=== PATIENT | female | born 2000 | race African-American/Black ===

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

== ENCOUNTER 2018-04-24 13:39 | Emergency (ER) | payer MEDICAID ==
[2018-04-24 15:46] LABS: ABSOLUTE EOSINOPHILS # (AUTO) 0.1 10^3/uL (0.0-0.6); ABSOLUTE LYMPHOCYTES (AUTO) 1.4 10^3/uL (0.5-4.7); ABSOLUTE MONOCYTES (AUTO) 0.5 10^3/uL (0.1-1.4); ABSOLUTE NEUT (AUTO) 5.4 10^3/uL (1.7-8.2); BASOPHILS % (AUTO) 0.3 % (0-2); EOSINOPHILS % (AUTO) 1.7 % (0-6); HEMATOCRIT 38.2 % (36.0-47.0); HEMOGLOBIN 12.8 g/dL (12.0-15.5); LYMPHOCYTES % (AUTO) 18.4 % (13-45); MEAN CORPUSCULAR HEMOGLOBIN 28.3 pg (27.0-33.4); MEAN CORPUSCULAR HGB CONC 33.4 g/dL (32.0-36.0); MEAN CORPUSCULAR VOLUME 85 fl (80-97); PLATELET COUNT 176 10^3/uL (150-450); RED CELL DISTRIBUTION WIDTH 13.3 % (11.5-14.0); SEGMENTED NEUTROPHILS % (AUTO) 72.6 % (42-78); TOTAL CELLS COUNTED % (AUTO) 100 %; WHITE BLOOD COUNT 7.5 10^3/uL (4.0-10.5)
[2018-04-24 16:02] LABS: APPEARANCE,URINE CLOUDY; BILIRUBIN,URINE NEGATIVE (NEGATIVE); COLOR,URINE YELLOW; GLUCOSE, URINE NEGATIVE (NEGATIVE); KETONES,URINE TRACE mg/dL (NEGATIVE); LEUKOCYTE ESTERASE,URINE TRACE (NEGATIVE); NITRITE,URINE NEGATIVE (NEGATIVE); PROTEIN,URINE 100 mg/dL (NEGATIVE); URINE SPECIFIC GRAVITY 1.018; UROBILINOGEN,URINE NEGATIVE mg/dL (<2.0)
[2018-04-24 16:07] LABS: ANION GAP 12 (5-19); BLOOD UREA NITROGEN 7 mg/dL (7-20); CARBON DIOXIDE 25 mmol/L (22-30); CHLORIDE 102 mmol/L (98-107); GLUCOSE 69 mg/dL (75-110); POTASSIUM 4.3 mmol/L (3.6-5.0); SODIUM 138.8 mmol/L (137-145)
[2018-04-24] MEDS ORDERED: NITROFURANTOIN MONOHYD/M-CRYST 100 MG CAPSULE PO ONE (18:46)
--- NOTE | 2018-04-24 18:48 | RADIOLOGY REPORT (SQ) ---
EXAM DESCRIPTION: U/S OB 14+ TRNABD 1GES W/O DOP COMPLETED DATE/TIME: 04/24/2018 6:28 pm REASON FOR STUDY: 16weeks vag bleeding COMPARISON: None. TECHNIQUE: Static and Dynamic grayscale imaging performed of gravid uterus using transabdominal appr oach. Additional selected color Doppler and spectral images recorded. All stored on PACS. LIMITATIONS: None. FINDINGS: EGA: 15 weeks 6 days gestation by ultrasound DONIS: 10/10/2018 by ultrasound EFW: 135 g grams PERCENTILE: Not available BRENT: Adequate PLACENTA: Placenta is posterior PRESENTATION: Vertex ANATOMY: HEART RATE: 137 beats per minute. FOUR CHAMBER HEART: Visualized. THREE VESSEL CORD: Yes. CORD INSERTION: Visualized. KIDNEYS AND BLADDER: Kidneys not visualized. Bladder unremarkable. STOMACH: Visualized. Appears normal. SPINE: Not visualized on limited study. BRAIN AND LATERAL VENTRICLES: Not visualized on limited study OTHER: No other significant finding. MATERNAL ADNEXA: Maternal ovaries not visualized. CERVICAL LENGTH: 3.7 cm OTHER: No other significant finding. IMPRESSION: LIVING INTRAUTERINE . ESTIMATED GESTATIONAL AGE 15 weeks 6 days gestation NO VISUALIZED ANOMALIES. Trimester of : 2nd trimester TECHNICAL DOCUMENTATION: JOB ID: [id number] [employer]- All Rights Reserved Reading location - IP/workstation name: [email or web address]
[2018-04-24] MEDS ORDERED: CEPHALEXIN 500 MG CAPSULE PO ONE (18:53)
--- NOTE | 2018-04-24 18:57 | ER Document Report ---
ED General - General Chief Complaint: Vaginal Bleeding Stated Complaint: VAGINAL BLEEDING Time Seen by Provider: 04/24/18 15:08 TRAVEL OUTSIDE OF THE [place] IN LAST 30 DAYS: No - HPI Patient complains to provider of: Vaginal bleeding/hematuria Notes: Patient coming in for possible vaginal bleeding or hematuria. Patient states unseen blood when she urinates. Patient otherwise not wearing pads or tampons. Patient is an NG to P0 determine portion of the first currently approximately 16 weeks along. Patient denies abdominal pain patient denies fever chills nausea vomiting diarrhea denies any dysuria. Patient resting company upon my evaluation - Related Data Allergies/Adverse Reactions: No Known Allergies Allergy (Verified 04/24/18 13:41) Past Medical History - Social History Smoking Status: Never Smoker Chew tobacco use (# tins/day): No Frequency of alcohol use: None Drug Abuse: None Family History: Reviewed & Not Pertinent Patient has suicidal ideation: No Patient has homicidal ideation: No Pulmonary Medical History: Reports: Hx Asthma Renal/ Medical History: Denies: Hx Peritoneal Dialysis - Immunizations Hx Diphtheria, Pertussis, Tetanus Vaccination: Yes Review of Systems - Review of Systems Constitutional: No symptoms reported EENT: No symptoms reported Cardiovascular: No symptoms reported Respiratory: No symptoms reported Gastrointestinal: No symptoms reported Genitourinary: Hematuria - Versus vaginal bleeding Female Genitourinary: No symptoms reported Musculoskeletal: No symptoms reported Skin: No symptoms reported Hematologic/Lymphatic: No symptoms reported Neurological/Psychological: No symptoms reported -: Yes All other systems reviewed and negative Physical Exam - Vital signs Vitals: Temp Pulse Resp BP Pulse Ox 99.1 F 102 H 20 119/64 94 04/24/18 13:46 04/24/18 13:46 04/24/18 13:46 04/24/18 13:46 04/24/18 13:46 Interpretation: Normal - General General appearance: Appears well, Alert - HEENT Head: Normocephalic, Atraumatic Eyes: Normal Pupils: PERRL - Respiratory Respiratory status: No respiratory distress Chest status: Nontender Breath sounds: Normal Chest palpation: Normal - Cardiovascular Rhythm: Regular Heart sounds: Normal auscultation Murmur: No - Abdominal Inspection: Normal Distension: No distension Bowel sounds: Normal Tenderness: Nontender Organomegaly: No organomegaly - Back Back: Normal, Nontender - Extremities General upper extremity: Normal inspection, Nontender, Normal color, Normal ROM , Normal temperature General lower extremity: Normal inspection, Nontender, Normal color, Normal ROM , Normal temperature, Normal weight bearing. No: Tameka's sign - Neurological Neuro grossly intact: Yes Cognition: Normal Orientation: AAOx4 [place] Coma Scale Eye Opening: Spontaneous [place] Coma Scale Verbal: Oriented [place] Coma Scale Motor: Obeys Commands Estuardo Coma Scale Total: 15 Speech: Normal Motor strength normal: LUE, RUE, LLE, RLE Sensory: Normal - Psychological Associated symptoms: Normal affect, Normal mood - Skin Skin Temperature: Warm Skin Moisture: Dry Skin Color: Normal Course - Re-evaluation Re-evalutation: 04/24/18 20:59 Ultrasound was performed showing no signs of distress. Normal heart tones normal ultrasound. Urinalysis does show hematuria with white blood cells and bacteria more likely hemorrhagic cystitis or urinary tract infection. Patient will be started on antibiotics. Patient was encouraged follow-up with her PRINCIPAL CLERK urine culture was sent as well - Vital Signs Vital signs: Temp Pulse Resp BP Pulse Ox 98.3 F 99 H 20 107/65 100 04/24/18 19:04 04/24/18 19:04 04/24/18 13:46 04/24/18 19:04 04/24/18 19:04 - Laboratory Result Diagrams: 04/24/18 15:22 04/24/18 15:22 Laboratory results interpreted by me: 04/24/18 04/24/18 15:22 15:22 Glucose 69 L Beta HCG, Quant 78001.00 H Urine Protein 100 H Urine Ketones TRACE H Urine Blood LARGE H Ur Leukocyte Esterase TRACE H Urine Ascorbic Acid 40 H Discharge - Discharge Clinical Impression: Vaginal bleeding during Urinary tract infection Qualifiers: Urinary tract infection type: site unspecified Hematuria presence: with hematuria Qualified Code(s): N39.0 - Urinary tract infection, site not specified Condition: Good Disposition: HOME, SELF-CARE Instructions: Cephalexin ([facility]), Urinary Tract Infection, Child ([facility]) Additional Instructions: Ultrasound does not show any abnormalities of your . You are O+ blood type. Laboratory studies not show any other concerns except for signs of urinary tract infection. Please take antibiotics as prescribed. Follow-up with PRINCIPAL CLERK return to the ER for any other concerning issues. Prescriptions: Cephalexin Monohydrate [Keflex 500 mg Capsule] 500 mg PO Q6H 10 Days capsule Referrals: MELODY CLAY MD [Primary Care Provider] - Follow up in 1 week
[2018-04-24 19:07] VITALS: BP 107/65
== END 2018-04-24 19:06 | disposition home or self-care (01) ==
LOC: ER 13:39
DX: O46.90 Antepartum hemorrhage, unspecified, unspecified trimester (principal); O23.40 Unspecified infection of urinary tract in pregnancy, unspecified trimester; R31.9 Hematuria, unspecified; O99.519 Diseases of the respiratory system complicating pregnancy, unspecified trimester; J45.909 Unspecified asthma, uncomplicated; O26.899 Other specified pregnancy related conditions, unspecified trimester; Z3A.00 Weeks of gestation of pregnancy not specified
CPT/HCPCS: 36415; 76805; 80048; 81001; 84702; 85025; 86900; 86901; 87086; 87088; 87186; 99284

== ENCOUNTER 2018-06-10 09:28 | Outpatient (CLI) | payer MEDICAID ==
[2018-06-10 10:09] LABS: ABSOLUTE LYMPHOCYTES (AUTO) 0.6 10^3/uL (0.5-4.7); ABSOLUTE MONOCYTES (AUTO) 1.1 10^3/uL (0.1-1.4); HEMOGLOBIN 9.2 g/dL (12.0-15.5); TOTAL CELLS COUNTED % (AUTO) 100 %
[2018-06-10 10:13] LABS: ABSOLUTE NEUT (AUTO) 8.9 10^3/uL (1.7-8.2); BASOPHILS % (AUTO) 0.2 % (0-2); EOSINOPHILS % (AUTO) 0.2 % (0-6); HEMATOCRIT 26.9 % (36.0-47.0); LYMPHOCYTES % (AUTO) 5.5 % (13-45); MEAN CORPUSCULAR HEMOGLOBIN 28.9 pg (27.0-33.4); MEAN CORPUSCULAR HGB CONC 34.1 g/dL (32.0-36.0); MEAN CORPUSCULAR VOLUME 85 fl (80-97); MONOCYTES % (AUTO) 10.4 % (3-13); PLATELET COUNT 130 10^3/uL (150-450); RED BLOOD COUNT 3.18 10^6/uL (3.72-5.28); RED CELL DISTRIBUTION WIDTH 13.3 % (11.5-14.0); SEGMENTED NEUTROPHILS % (AUTO) 83.7 % (42-78); WHITE BLOOD COUNT 10.6 10^3/uL (4.0-10.5)
[2018-06-10 10:28] LABS: ALANINE AMINOTRANSFERASE 28 U/L (9-52); ALBUMIN 3.2 g/dL (3.5-5.0); ALKALINE PHOSPHATASE 76 U/L (38-126); AMYLASE 39 U/L (30-110); ANION GAP 11 (5-19); ASPARTATE AMINO TRANSFERASE 17 U/L (14-36); BILIRUBIN,DIRECT 0.2 mg/dL (0.0-0.4); BILIRUBIN,TOTAL 0.3 mg/dL (0.2-1.3); BLOOD UREA NITROGEN 4 mg/dL (7-20); CALCIUM 8.3 mg/dL (8.4-10.2); CARBON DIOXIDE 20 mmol/L (22-30); CHLORIDE 104 mmol/L (98-107); GLUCOSE 113 mg/dL (75-110); LIPASE 20.5 U/L (23-300); POTASSIUM 3.1 mmol/L (3.6-5.0); SODIUM 135.4 mmol/L (137-145); TOTAL PROTEIN 6.1 g/dL (6.3-8.2)
[2018-06-10 11:02] LABS: APPEARANCE,URINE CLOUDY; BILIRUBIN,URINE NEGATIVE (NEGATIVE); COLOR,URINE YELLOW; GLUCOSE, URINE 50 mg/dL (NEGATIVE); KETONES,URINE NEGATIVE (NEGATIVE); LEUKOCYTE ESTERASE,URINE LARGE (NEGATIVE); NITRITE,URINE NEGATIVE (NEGATIVE); PROTEIN,URINE 30 mg/dL (NEGATIVE); URINE SPECIFIC GRAVITY 1.008; UROBILINOGEN,URINE NEGATIVE mg/dL (<2.0)
[2018-06-10 11:22] LABS: URINE AMPHETAMINES SCREEN NEGATIVE; URINE BARBITURATES SCREEN NEGATIVE; URINE BENZODIAZEPINES SCREEN NEGATIVE; URINE COCAINE SCREEN NEGATIVE; URINE MARIJUANA (THC) SCREEN NEGATIVE; URINE METHADONE SCREEN NEGATIVE; URINE PHENCYCLIDINE SCREEN NEGATIVE
--- NOTE | 2018-06-10 11:52 | RADIOLOGY REPORT (SQ) ---
EXAM DESCRIPTION: U/S OB LIMITED COMPLETED DATE/TIME: 06/10/2018 11:24 am REASON FOR STUDY: cervical length COMPARISON: None. TECHNIQUE: Limited transvaginal grayscale ultrasound for evaluation of specific requested obstetrica l parameters. LIMITATIONS: None. FINDINGS: CERVICAL LENGTH: 2.4 cm. Closed. BRENT: 5.5 cm. FHR: 150 beats per minute. PRESENTATION: Breech. OTHER: Posterior placenta. IMPRESSION: LIMITED OBSTETRICAL ULTRASOUND WITH MEASURED PARAMETERS DELINEATED ABOVE. Trimester of : Second trimester - 13 weeks 1 day to 27 weeks 6 days. TECHNICAL DOCUMENTATION: JOB ID: [id number] [employer]- All Rights Reserved Reading location - IP/workstation name: [email or web address]
[2018-06-10] MEDS ORDERED: CEFTRIAXONE INJ 1000 MG VIAL IM ONE (12:42)
[2018-06-10 13:06] LABS: RBCS (WET MOUNT) RARE RBCS SEEN; T.VAGINALIS (WET MOUNT) NO TRICHOMONAS SEEN; WBCS (WET MOUNT) 1+ WBCS SEEN; YEAST (WET MOUNT) NO YEAST SEEN
[2018-06-10] MEDS ORDERED: CEFTRIAXONE INJ 1000 MG VIAL ONE (13:08)
[2018-06-10] MEDS ORDERED: LIDOCAINE 1% INJ-PF (10 MG/ML) 30 ML SDV ONE (13:08)
[2018-06-10] MEDS ORDERED: ACETAMINOPHEN 325 MG TABLET ONE (13:53)
[2018-06-10 14:28] LABS: CHLAM PCR NOT DETECTED (NOT DETECT); GON PCR NOT DETECTED (NOT DETECT)
[2018-06-10] MEDS ORDERED: ACETAMINOPHEN 325 MG TABLET PO ONE (15:00)
== END 2018-06-10 14:20 | disposition home or self-care (01) ==
LOC: LC 09:28
PROVIDERS: ATTEND Student in an Organized Health Care Education/Training Program
PROC: 4A1HXCZ Monitoring of Products of Conception, Cardiac Rate, External Approach (ICD-10-PCS; principal; 2018-06-10)
DX: O23.42 Unspecified infection of urinary tract in pregnancy, second trimester (principal); Z3A.22 22 weeks gestation of pregnancy
CPT/HCPCS: 59899; 36415; 87086; 87210; 82150; 83690; 85025; 87088; 80053; 81001; 87186; 80307; 87491; 87591; 76815; J3490 ×2; J0696

== ENCOUNTER 2018-06-26 07:59 | Outpatient (CLI) | payer MEDICAID ==
[2018-06-26 10:15] LABS: APPEARANCE,URINE CLOUDY; BILIRUBIN,URINE NEGATIVE (NEGATIVE); COLOR,URINE YELLOW; GLUCOSE, URINE NEGATIVE (NEGATIVE); KETONES,URINE NEGATIVE (NEGATIVE); LEUKOCYTE ESTERASE,URINE SMALL (NEGATIVE); NITRITE,URINE NEGATIVE (NEGATIVE); PROTEIN,URINE >=500 mg/dL (NEGATIVE); URINE SPECIFIC GRAVITY 1.014; UROBILINOGEN,URINE NEGATIVE mg/dL (<2.0)
[2018-06-26 10:33] LABS: URINE AMPHETAMINES SCREEN NEGATIVE; URINE BARBITURATES SCREEN NEGATIVE; URINE BENZODIAZEPINES SCREEN NEGATIVE; URINE COCAINE SCREEN NEGATIVE; URINE MARIJUANA (THC) SCREEN NEGATIVE; URINE METHADONE SCREEN NEGATIVE; URINE PHENCYCLIDINE SCREEN NEGATIVE
--- NOTE | 2018-06-26 12:12 | RADIOLOGY REPORT (SQ) ---
EXAM DESCRIPTION: U/S OB LIMITED COMPLETED DATE/TIME: 06/26/2018 11:14 am REASON FOR STUDY: 27 WEEK IUP- ABD PAIN COMPARISON: 06/10/2018. TECHNIQUE: Limited transabdominal grayscale ultrasound for evaluation of specific requested obstetri danisha parameters. LIMITATIONS: None. FINDINGS: CERVICAL LENGTH: 3.0 cm. Closed. BRENT: Largest vertical pocket is 6.2 cm, clear fluid. FHR: 128 beats per minute. PRESENTATION: Cephalic. OTHER: Right ovary not seen. IMPRESSION: LIMITED OBSTETRICAL ULTRASOUND WITH MEASURED PARAMETERS DELINEATED ABOVE. Trimester of : Second trimester - 13 weeks 1 day to 27 weeks 6 days. TECHNICAL DOCUMENTATION: JOB ID: [id number] [employer] All Rights Reserved Reading location - IP/workstation name: [email or web address]
== END 2018-06-26 12:18 | disposition home or self-care (01) ==
LOC: LC 07:59
PROVIDERS: ATTEND Obstetrics & Gynecology
PROC: 4A1HXCZ Monitoring of Products of Conception, Cardiac Rate, External Approach (ICD-10-PCS; principal; 2018-06-26)
DX: O26.892 Other specified pregnancy related conditions, second trimester (principal); R10.2 Pelvic and perineal pain; Z3A.27 27 weeks gestation of pregnancy
CPT/HCPCS: 76815; 80307; 81001; 87086; 87088; 87186

== ENCOUNTER 2018-09-18 11:30 | Outpatient (CLI) | payer MEDICAID ==
--- NOTE | 2018-09-18 12:18 | Non Stress Test Report ---
Non Stress Test Datetime Report Generated by CPN: 09/18/2018 12:18 DEMOGRAPHIC EGA NST: 36.6 INDICATION Indication for Study: Diabetes Mellitus; Ordered by Provider Indication for Study (NST) Other: repeat from office VITAL SIGNS Temperature - NST: 98.3 Pulse - NST: 100 RESP - NST: 17 NBPSYS NST: 117 NBPDIA NST: 59 MONITORING Monitor Explained: Monitor Explained; Test Explained; Patient Verbalized Understanding Time on Monitor: 09/18/2018 11:37 Time off Monitor: 09/18/2018 12:02 NST Duration: 25 NST INTERVENTIONS NST Interventions: PO Hydration; Reposition Patient; Vibroacoustic Stim Physician Notified NST: Dr Kramer BABY A: [id number] BABY A Movement : Present Contraction Frequency : x1 Accelerations : 15X15 Decelerations : None Variability : Moderate 6-25bpm NST Review: Meets Criteria for Reactive NST NST Review and Verified By : SVance, RN NST Results: Reactive NST REPORT Report Trigger: Send Report
== END 2018-09-18 12:06 | disposition home or self-care (01) ==
LOC: LC 11:30
PROVIDERS: ATTEND Obstetrics & Gynecology
PROC: 4A1HXCZ Monitoring of Products of Conception, Cardiac Rate, External Approach (ICD-10-PCS; principal; 2018-09-18)
DX: O24.419 Gestational diabetes mellitus in pregnancy, unspecified control (principal); Z3A.36 36 weeks gestation of pregnancy
CPT/HCPCS: 59025

== ENCOUNTER 2018-09-27 17:30 | Outpatient (CLI) | payer MEDICAID ==
[2018-09-27 18:39] LABS: APPEARANCE,URINE SLIGHTLY-CLOUDY; BILIRUBIN,URINE NEGATIVE (NEGATIVE); COLOR,URINE YELLOW; GLUCOSE, URINE NEGATIVE (NEGATIVE); KETONES,URINE 20 mg/dL (NEGATIVE); LEUKOCYTE ESTERASE,URINE SMALL (NEGATIVE); NITRITE,URINE NEGATIVE (NEGATIVE); PROTEIN,URINE NEGATIVE (NEGATIVE); URINE SPECIFIC GRAVITY 1.011; UROBILINOGEN,URINE NEGATIVE mg/dL (<2.0)
[2018-09-27 19:00] LABS: URINE AMPHETAMINES SCREEN NEGATIVE; URINE BARBITURATES SCREEN NEGATIVE; URINE BENZODIAZEPINES SCREEN NEGATIVE; URINE COCAINE SCREEN NEGATIVE; URINE MARIJUANA (THC) SCREEN NEGATIVE; URINE METHADONE SCREEN NEGATIVE; URINE PHENCYCLIDINE SCREEN NEGATIVE
--- NOTE | 2018-09-27 19:02 | Non Stress Test Report ---
Non Stress Test Datetime Report Generated by CPN: 09/27/2018 19:02 DEMOGRAPHIC EGA NST: 38.1 INDICATION Indication for Study: Ordered by Provider VITAL SIGNS Temperature - NST: 98.3 Pulse - NST: 93 RESP - NST: 18 NBPSYS NST: 120 NBPDIA NST: 69 MONITORING Monitor Explained: Monitor Explained; Test Explained; Patient Verbalized Understanding Time on Monitor: 09/27/2018 17:57 Time off Monitor: 09/27/2018 18:43 NST Duration: 46 NST INTERVENTIONS NST Interventions: PO Hydration; Reposition Patient Physician Notified NST: C. Mejia CNM BABY A: [id number] BABY A Movement : Present Contraction Frequency : irritability FHR Baseline : 135 Accelerations : 15X15 Decelerations : None Variability : Moderate 6-25bpm NST Review: Meets Criteria for Reactive NST NST Review and Verified By : Yao Platt RN NST Results: Reactive NST REPORT Report Trigger: Send Report
== END 2018-09-27 18:48 | disposition home or self-care (01) ==
LOC: LC 17:30
PROVIDERS: ATTEND Obstetrics & Gynecology Gynecology
PROC: 4A1HXCZ Monitoring of Products of Conception, Cardiac Rate, External Approach (ICD-10-PCS; principal; 2018-09-27)
DX: Z34.93 Encounter for supervision of normal pregnancy, unspecified, third trimester (principal); Z3A.38 38 weeks gestation of pregnancy
CPT/HCPCS: 59025; 80307; 81005; 84112

== ENCOUNTER 2018-10-05 22:04 | Inpatient (IN) | payer MEDICAID ==
[2018-10-05 22:45] LABS: APPEARANCE,URINE CLEAR; BILIRUBIN,URINE NEGATIVE (NEGATIVE); COLOR,URINE STRAW; GLUCOSE, URINE NEGATIVE (NEGATIVE); KETONES,URINE NEGATIVE (NEGATIVE); LEUKOCYTE ESTERASE,URINE NEGATIVE (NEGATIVE); NITRITE,URINE NEGATIVE (NEGATIVE); PROTEIN,URINE NEGATIVE (NEGATIVE); URINE SPECIFIC GRAVITY 1.003; UROBILINOGEN,URINE NEGATIVE mg/dL (<2.0)
[2018-10-05 23:00] LABS: URINE AMPHETAMINES SCREEN NEGATIVE; URINE BARBITURATES SCREEN NEGATIVE; URINE BENZODIAZEPINES SCREEN NEGATIVE; URINE COCAINE SCREEN NEGATIVE; URINE MARIJUANA (THC) SCREEN NEGATIVE; URINE METHADONE SCREEN NEGATIVE; URINE PHENCYCLIDINE SCREEN NEGATIVE
--- NOTE | 2018-10-05 23:29 | Non Stress Test Report ---
Non Stress Test Datetime Report Generated by CPN: 10/05/2018 23:28 DEMOGRAPHIC Test Number: 1 EGA NST: 39.2 INDICATION Indication for Study: Ordered by Provider URINE RESULTS Urine Protein, NST: Negative Urine Ketones - NST: Negative Urine Glucose - NST: Negative Urine Blood - NST: Negative MONITORING Monitor Explained: Monitor Explained; Test Explained; Patient Verbalized Understanding Time on Monitor: 10/05/2018 22:22 Time off Monitor: 10/05/2018 22:55 NST Duration: 33 NST INTERVENTIONS NST Interventions: PO Hydration; Reposition Patient Physician Notified NST: Dr. Kramer BABY A: [id number] BABY A Movement : Present Contraction Frequency : 4-8 FHR Baseline : 125 Accelerations : 15X15 Decelerations : None Variability : Moderate 6-25bpm NST Review: Meets Criteria for Reactive NST NST Review and Verified By : Balbir Feliciano RN NST REPORT Report Trigger: Send Report
[2018-10-05 23:32] LABS: ABSOLUTE EOSINOPHILS # (AUTO) 0.1 10^3/uL (0.0-0.6); ABSOLUTE LYMPHOCYTES (AUTO) 1.5 10^3/uL (0.5-4.7); ABSOLUTE NEUT (AUTO) 5.6 10^3/uL (1.7-8.2); BASOPHILS % (AUTO) 0.4 % (0-2); EOSINOPHILS % (AUTO) 1.7 % (0-6); HEMATOCRIT 33.3 % (36.0-47.0); HEMOGLOBIN 11.3 g/dL (12.0-15.5); LYMPHOCYTES % (AUTO) 18.6 % (13-45); MEAN CORPUSCULAR HEMOGLOBIN 28.4 pg (27.0-33.4); MEAN CORPUSCULAR HGB CONC 34.1 g/dL (32.0-36.0); MEAN CORPUSCULAR VOLUME 83 fl (80-97); MONOCYTES % (AUTO) 11.7 % (3-13); PLATELET COUNT 128 10^3/uL (150-450); RED CELL DISTRIBUTION WIDTH 14.8 % (11.5-14.0); SEGMENTED NEUTROPHILS % (AUTO) 67.6 % (42-78); TOTAL CELLS COUNTED % (AUTO) 100 %; WHITE BLOOD COUNT 8.3 10^3/uL (4.0-10.5)
[2018-10-05 23:36] LABS: UR PRO/CREAT RATIO RESULT 0.8 mg/mg (0.0-0.2); URINE CREATININE 29.7 mg/dL (16-327); URINE PROTEIN 22.3 mg/dL (<12)
[2018-10-05 23:49] LABS: ALANINE AMINOTRANSFERASE 14 U/L (9-52); ALBUMIN 3.3 g/dL (3.5-5.0); ALKALINE PHOSPHATASE 248 U/L (38-126); ANION GAP 12 (5-19); ASPARTATE AMINO TRANSFERASE 19 U/L (14-36); BILIRUBIN,DIRECT 0.1 mg/dL (0.0-0.4); BILIRUBIN,TOTAL 0.2 mg/dL (0.2-1.3); BLOOD UREA NITROGEN 7 mg/dL (7-20); CALCIUM 8.8 mg/dL (8.4-10.2); CARBON DIOXIDE 20 mmol/L (22-30); CHLORIDE 105 mmol/L (98-107); GLUCOSE 81 mg/dL (75-110); POTASSIUM 3.9 mmol/L (3.6-5.0); TOTAL PROTEIN 5.8 g/dL (6.3-8.2); URIC ACID 4.8 mg/dL (2.5-6.2)
[2018-10-06] MEDS ORDERED: DINOPROSTONE 10 MG VAGINAL INSERT.SR PV PRN (00:28)
[2018-10-06] MEDS ORDERED: RINGERS SOLUTION,LACTATED 1,000 ML IV PRN (00:28)
[2018-10-06] MEDS ORDERED: RINGERS SOLUTION,LACTATED 300 ML IV ONE (00:28)
[2018-10-06] MEDS ORDERED: HYDRALAZINE HCL INJ/PF 20 MG/1 ML SDV IV PRN (00:30)
[2018-10-06] MEDS ORDERED: DINOPROSTONE 10 MG VAGINAL INSERT.SR ONE (01:33)
--- NOTE | 2018-10-06 06:44 | Admission Physical ---
Datetime Report Generated by CPN: 10/06/2018 06:43 CURRENT ADMISSION Chief Complaint: Maternal Discomfort; Other Indication for Induction: PreEclampsia Admit Impression : Term, Intrauterine ; Induction of Labor Admit Plan: Admit to Unit; Initiate Labor Induction Protocol ALLERGIES Medication Allergies: No Medication Allergies: No Known Allergies (10/05/2018) Latex: No Latex Allergies Food Allergies: NONE Environmental Allergies: NONE (Annotations: Data stored by CPN on behalf of user) OBSTETRICAL HISTORY EDC: 10/10/2018 00:00 : 2 Para: 0 Term: 0 : 0 SAB: 0 IAB: 1 Ectopic: 0 Livin Cesareans: 0 VBACs: 0 Multiple Births: 0 Gestational Diabetes: Yes Rh Sensitization: No Incompetent Cervix: No MARINO: No Infertility: No ART Treatment: No Uterine Anomaly: No IUGR: No Hx Previous C/S: No Macrosomia: No Hx Loss/Stillborn: No PIH: No Hx : No Placenta Previa/Abruption: No Depression/PP Depression: No PTL/PROM: No Post Hemorrhage: No Current Procedures: Ultrasound; NST Obstetrical History Comments: G1: 2016 16 week EAB G2: GDM, anemia, GBS positive SEE RECORDS Alcohol: No Marijuana : No Cocaine: No Other Illicit Drugs: No Cigarettes: Never Smoker. [id number] MEDICAL HISTORY Diabetes: Yes Diabetes Type: Gestational Diabetes Blood Transfusion: No Pulmonary Disease (Asthma, TB): Yes Breast Disease: No Hypertension: No Time Checker Surgery: No Heart Disease: No Hosp/Surgery: No Autoimmune Disorder: No Anesthetic Complications: No Kidney Disease: No Abnormal Pap Smear: No Neuro/Epilepsy: No Psychiatric Disorders: No Other Medical Diseases: No Hepatitis/Liver Disease: No Significant Family History: No Varicosities/Phlebitis: No Trauma/Violence : No Thyroid Dysfunction: No Medical History Comments: social issues, depression per chart FOB in longterm (they are together) per chart INFECTIOUS HISTORY Gonorrhea: No Genital Herpes: No Chlamydia: Yes Tuberculosis: No Syphilis: No Hepatitis: No HIV/AIDS Exposure: No Rash or Viral Illness: No HPV: No Infectious History Comments: positive chlam neg ANATOLY 06/10/18 PHYSICAL EXAM General: Normal HEENT: Normal Neurologic: Normal Thyroid: Normal Heart: Normal Lungs: Normal Breast: Deferred Back: Normal Abdomen: Normal Genitourinary Exam: Normal Extremities: Normal DTRs: Normal Pelvic Type: Adequate Vital Signs: Reviewed VAGINAL EXAM Dilatation: 0 Effacement: 0 Station: -3 MEMBRANES Pooling: Negative Membranes: Intact FETUS A EGA: 39.3 Monitoring: External US FHR- Baseline: 120 Variability: Moderate 6-25bpm Decelerations: None FHR Category: Category I Presentation: Vertex Admit Comment: Admit for delivery PLANS FOR LABOR AND DELIVERY Labor and Delivery: None Pain Management: Natural; Epidural Feeding Preference: Breast Benefit of Breast Feed Discussed: Yes Circumcision: Yes INFORMED CONSENT Signature: with User ID: [email or web address]
[2018-10-06] MEDS ORDERED: HYDRALAZINE HCL INJ/PF 20 MG/1 ML SDV ONE (07:47)
[2018-10-06] MEDS ORDERED: OXYTOCIN/NORMAL SALINE 20 UNIT/1,000 ML RTUINJ ONE (09:42)
[2018-10-06] MEDS ORDERED: OXYTOCIN/NORMAL SALINE 20 UNIT/1,000 ML RTUINJ IV PRN ×3 (09:53→18:58)
[2018-10-06] MEDS ORDERED: PENICILLIN G-K 5 MILLION UNIT VIAL ONE ×2 (10:06→13:57)
[2018-10-06] MEDS ORDERED: PHENYLEPHRINE HCL INJ/PF 10 MG/1 ML SDV ONE (11:17)
[2018-10-06] MEDS ORDERED: FENTANYL CITRATE INJ/PF 100 MCG/2 ML AMPUL ONE (11:18)
[2018-10-06] MEDS ORDERED: EPHEDRINE SULFATE INJ 50 MG/1 ML AMPULE ONE (11:18)
[2018-10-06] MEDS ORDERED: FENTANYL/BUPIVACAINE/NS/PF 300 MCG/150 ML RTUINJ EPI ONE (11:19)
[2018-10-06] MEDS ORDERED: BUPIVACAINE HCL 0.5 % INJ/PF 30 ML SDV ONE (11:19)
[2018-10-06] MEDS ORDERED: MISOPROSTOL 0.2 MG TABLET ONE (16:49)
[2018-10-06] MEDS ORDERED: LIDOCAINE 1% INJ-PF (10 MG/ML) 30 ML SDV ONE (16:50)
[2018-10-06] MEDS ORDERED: ACETAMINOPHEN WITH CODEINE #3 TABLET PO PRN ×2 (18:58)
[2018-10-06] MEDS ORDERED: BENZOCAINE/MENTHOL AEROSOL SPRAY 56 ML TOP PRN (18:58)
[2018-10-06] MEDS ORDERED: ZOLPIDEM TARTRATE 5 MG TABLET PO PRN (18:58)
[2018-10-06] MEDS ORDERED: DIBUCAINE 1% OINTMENT 28 GM TP PRN (18:58)
[2018-10-06] MEDS ORDERED: MEASLES,MUMPS&RUBELLA VACC/PF 0.5 ML VIAL SUBCUT PRN (18:58)
[2018-10-06] MEDS ORDERED: DIPH/PERTUSS(ACELL)/TETANUS VAC/PF 0.5 ML SYR (>=10YO) IM PRN (18:58)
--- NOTE | 2018-10-06 19:12 | Warning Signs in Babies ---
VOD Warning Signs Datetime Report Generated by [facility]: 10/06/2018 19:12 VOD#608 -Warning Signs in Babies: Needs to be viewed. (06/10/2018 14:31:Corrine Donnelly RN)
[2018-10-06] MEDS ORDERED: LABETALOL HCL INJ 20 MG/4 ML DISP.SYRIN IV ONE ×2 (20:59→21:03)
--- NOTE | 2018-10-06 22:07 | Delivery Summary ---
Del Sum A-C Datetime Report Generated by CPN: 10/06/2018 22:07 DELIVERY PERSONNEL DELIVERY PERSONNEL: [id number] Delivery Doctor:: Evelin Cabrera MD Labor and Delivery Nurse:: Mattie Jansen RNregistered nursing professor Nurse:: Deirdre Shields RN Ice Puller/SAUSAGE MAKER: Evonne Rodriguez, BUILDING CODE INSPECTOR MATERNAL INFORMATION Delivery Anesthesia: Epidural Medications After Delivery: Pitocin Drip 20 Units/1000ml NSS Estimated Blood Loss (ml): 200 ml Maternal Complications: None Provider Comments: of a viable male @ 1840 [facility] an OA with nuchal cord x 1 presentation; APGARS 8, 9; 1st degree right periurthral and 1st degree left vaginal lacs LABOR SUMMARY EDC: 10/10/2018 00:00 No. Babies in Womb: 1 Attempted: No Labor Anesthesia: Epidural LABOR INFORMATION Reason for Induction: Pre-Eclampsia Onset of Labor: 10/06/2018 09:37 Complete Dilatation: 10/06/2018 16:21 Cervical Ripening Agents: Cervidil Oxytocin: Induction Group B Beta Strep: positive Antibiotics # of Doses: 2 Antibiotics Time of Last Dose: 1404 Name of Antibiotic Given: PCN Steroids Given: None Reason Steroids Not Administered: Not Applicable MEMBRANES Membranes Rupture Method: Artificial Rupture of Membranes: 10/06/2018 17:11 Length of Rupture (hr): 1.48 Amniotic Fluid Color: Clear Amniotic Fluid Amount: Small Amniotic Fluid Odor: Normal STAGES OF LABOR Stage 1 hr: 6 Stage 1 min: 44 Stage 2 hr: 2 Stage 2 min: 19 Stage 3 hr: 0 Stage 3 min: 5 Total Time in Labor hr: 9 Total Time in Labor min: 8 VAGINAL DELIVERY Episiotomy: None Laceration #1: Vaginal Laceration Extension #1: First Degree Laceration #2: Periurethral Laceration Extension #2: First Degree Laceration Repair: Yes Laceration Repair Note: reparied with 3-0 Chromic Sponge Count Correct: Yes Sharps Count Correct: Yes CSECTION DELIVERY Primary Indication: N/A Secondary Indication: N/A CSection Incidence: N/A Labor: N/A Elective: N/A CSection Incision: N/A BABY A INFORMATION Infant Delivery Date/Time: 10/06/2018 18:40 Method of Delivery: Vaginal Born in Route : No : N/A Forceps: N/A Vacuum Extraction: N/A Shoulder Dystocia : No PRESENTATION/POSITION BABY A Presentation: Cephalic Cephalic Presentation: Vertex Breech Presentation: N/A PLACENTA INFORMATION BABY A Placenta Delivery Time : 10/06/2018 18:45 Placenta Method of Delivery: Spontaneous Placenta Status: Delivered SCORES BABY A Heart Rate 1 min: >100 bpm Resp Effort 1 min: Good Cry Reflex Irritability 1 min: Cough or Sneeze or Pulls Away Muscle Tone 1 min: Active Motion Color 1 min: Blue/Pale Resuscitation Effort 1 min: Tactile Stimulation SCORE 1 MIN: 8 Heart Rate 5 min: >100 bpm Resp Effort 5 min: Good Cry Reflex Irritability 5 min: Cough or Sneeze or Pulls Away Muscle Tone 5 min: Active Motion Color 5 min: Body [place], Extremities Blue Resuscitation Effort 5 min: Tactile Stimulation SCORE 5 MIN: 9 INFANT INFORMATION BABY A Gestational Age at Delivery: 39.3 Gestational Status: Full Term- 39- 40.6 Weeks Infant Outcome : Liveborn Infant Condition : Stable Infant Sex: Male IDENTIFICATION BABY A Verification Date/Time: 10/06/2018 18:58 ID Band Number: [id number] Mother's Name Verified: Yes Infant RN Verifying Infant: H. Inderjit, RN and B. Baidy, RN WEIGHT/LENGTH BABY A Birthweight (gm): 3280 Infant Weight (lb): 7 Weight (oz): 4 Length (in): 20.00 Length (cm): 50.80 CORD INFORMATION BABY A No. Cord Vessels: 3 Nuchal Cord : Around Neck x1, Loose Cord Blood Taken: Yes-For Eval (Mom's Blood Type - or O+) Suction: Mouth; Nose ASSESSMENT BABY A Infant Complications: None Physical Findings at Delivery: Within Normal Limits Physical Findings- Other: see full nursery assessment Respirations: Appears Normal Skin to Skin: Yes Data Security Administrator/ALS Called : No Infant Care By: Drew Dyanabry, RN Transferred To: Remains with Mother BABY B INFORMATION : N/A SIGNATURES Signature: with User ID: [email or web address]
[2018-10-06] MEDS: IBUPROFEN 800 MG TABLET PO SCH (23:49)
[2018-10-07] MEDS: IBUPROFEN 800 MG TABLET PO SCH ×3 (07:30→21:40)
[2018-10-07 07:39] LABS: HEMATOCRIT 28.6 % (36.0-47.0); HEMOGLOBIN 9.7 g/dL (12.0-15.5); MEAN CORPUSCULAR HEMOGLOBIN 28.1 pg (27.0-33.4); MEAN CORPUSCULAR HGB CONC 33.8 g/dL (32.0-36.0); MEAN CORPUSCULAR VOLUME 83 fl (80-97); PLATELET COUNT 112 10^3/uL (150-450); RED BLOOD COUNT 3.43 10^6/uL (3.72-5.28); RED CELL DISTRIBUTION WIDTH 14.9 % (11.5-14.0); WHITE BLOOD COUNT 10.4 10^3/uL (4.0-10.5)
--- NOTE | 2018-10-07 10:22 | PDOC PROGRESS REPORT ---
Subjective-OB Progress Note for:: 10/07/18 Physical Exam (OB) Vital Signs: Temp Pulse Resp BP Pulse Ox 98.3 F 80 15 131/89 H 99 10/07/18 07:49 10/07/18 07:49 10/07/18 07:49 10/07/18 07:49 10/07/18 07:49 Intake & Output 10/06/18 10/07/18 10/08/18 06:59 06:59 06:59 Weight 72.1 kg - PIH/Pre-Eclampsia DTR's: 1 + Clonus: Positive Headache: Absent Epigastric Pain: No Visual Changes: No - Lochia Lochia Amount: Scant < 10 ml Lochia Color: Rubra/Red - Abdomen Description: Soft, Round Hernia Present: No Bowel Sounds: Normoactive Flatus Presence: Present Stool: No Fundal Description: Firm, Midline Fundal Height: u/u - u/2 Objective-Diagnostic Laboratory: 10/07/18 07:19 10/05/18 23:22 10/07/18 07:19 WBC 10.4 RBC 3.43 L Hgb 9.7 L Hct 28.6 L MCV 83 MCH 28.1 MCHC 33.8 RDW 14.9 H Plt Count 112 L
[2018-10-07] MEDS: FERROUS SULFATE 325 MG TABLET PO SCH ×2 (10:38→17:29)
[2018-10-07] MEDS: PRENATAL VITAMIN W DHA CAPSULE PO SCH (10:38)
[2018-10-07] MEDS: DOCUSATE SODIUM 100 MG CAPSULE PO SCH ×2 (10:38→17:29)
[2018-10-07] MEDS: SENNOSIDES/DOCUSATE 8.6-50 MG 1 EACH TABLET PO SCH (10:38)
[2018-10-08] MEDS: IBUPROFEN 800 MG TABLET PO SCH ×2 (05:13→14:34)
[2018-10-08] MEDS: SENNOSIDES/DOCUSATE 8.6-50 MG 1 EACH TABLET PO SCH (09:22)
[2018-10-08] MEDS: FERROUS SULFATE 325 MG TABLET PO SCH (09:22)
[2018-10-08] MEDS: PRENATAL VITAMIN W DHA CAPSULE PO SCH (09:22)
[2018-10-08] MEDS: DOCUSATE SODIUM 100 MG CAPSULE PO SCH (09:22)
[2018-10-08] MEDS ORDERED: NIFEDIPINE 30 MG TAB.ER.24 PO ONE (13:33)
[2018-10-08] MEDS ORDERED: MEDROXYPROGESTERONE ACET INJ 150 MG/1 ML VIAL IM ONE (15:21)
--- NOTE | 2018-10-08 15:22 | PDOC DISCHARGE SUMMARY ---
Final Diagnosis Discharge Date: 10/08/18 - Final Diagnosis (1) Encounter for induction of labor Is this a current diagnosis for this admission?: Yes (2) GDM (gestational diabetes mellitus) Is this a current diagnosis for this admission?: Yes (3) Positive GBS test Is this a current diagnosis for this admission?: Yes (4) Pre-eclampsia Is this a current diagnosis for this admission?: Yes (5) Delivery normal Is this a current diagnosis for this admission?: Yes Discharge Data - Discharge Medication Prescriptions: Acetaminophen [Tylenol 325 mg Tablet] 650 mg PO Q6HP PRN #60 tablet PRN Reason: Abdominal Cramping Docusate Sodium [Colace 100 mg Capsule] 100 mg PO BID #60 capsule Ferrous Sulfate [Feosol 325 mg Tablet] 325 mg PO BID #60 tablet Nifedipine [Procardia Xl 30 mg Tablet] 30 mg PO DAILY 30 Days #30 tab.er.24 Home Medications: Vit/Iron Fum/Folic AC [ Tablet] 1 each PO DAILY 04/24/18 Ferrous Sulfate [Iron] 1 tab PO BID 09/18/18 Acetaminophen [Tylenol 325 mg Tablet] 650 mg PO Q6HP PRN #60 tablet 10/08/18 Docusate Sodium [Colace 100 mg Capsule] 100 mg PO BID #60 capsule 10/08/18 Ferrous Sulfate [Feosol 325 mg Tablet] 325 mg PO BID #60 tablet 10/08/18 Nifedipine [Procardia Xl 30 mg Tablet] 30 mg PO DAILY 30 Days #30 tab.er.24 Reason(s) for Admission: Induction of Labor Procedures: NST, Ultrasound Intrapartum Procedure(s): Spontaneous Vaginal Delivery Complication(s): Laceration-Vaginal, Laceration-Perineal, Laceration- Periurethral Laceration-Degree: 1st - Diagnosis Test Laboratory: Temp Pulse Resp BP Pulse Ox 98.0 F 103 H 18 139/98 H 99 10/08/18 11:49 10/08/18 11:49 10/08/18 11:49 10/08/18 11:49 10/08/18 11:49 10/05/18 10/05/18 10/07/18 22:16 23:22 07:19 RBC 4.00 3.43 L Hgb 11.3 L 9.7 L Hct 33.3 L 28.6 L Urine Opiates Screen NEGATIVE - Discharge information/Instructions Discharge Activity: Activity As Tolerated, Balance Activity w/Rest, No Lifting Over 10 Pounds, No Lifting/Push/Pulling, Pelvic Rest, No tub bath, Walk Frequently Discharge Diet: As Tolerated, Regular Disposition: HOME, SELF-CARE Follow up with: [facility] in: 3, Days - blood pressure check
[2018-10-08 16:08] VITALS: BP 139/98
== END 2018-10-08 17:30 | disposition home or self-care (01) | DRG 807 ==
LOC: LC 22:04 → LR 10-06 00:30 → 2S 10-06 22:11
PROVIDERS: ADMIT Obstetrics & Gynecology; ATTEND Obstetrics & Gynecology
PROC: 10E0XZZ Delivery of Products of Conception, External Approach (ICD-10-PCS; principal; 2018-10-06)
PROC: 0HQ9XZZ Repair Perineum Skin, External Approach (ICD-10-PCS; 2018-10-06)
PROC: 0UQMXZZ Repair Vulva, External Approach (ICD-10-PCS; 2018-10-06)
PROC: 10907ZC Drainage of Amniotic Fluid, Therapeutic from Products of Conception, Via Natural or Artificial Opening (ICD-10-PCS; 2018-10-06)
PROC: 3E0P7VZ Introduction of Hormone into Female Reproductive, Via Natural or Artificial Opening (ICD-10-PCS; 2018-10-06)
PROC: 3E033VJ Introduction of Other Hormone into Peripheral Vein, Percutaneous Approach (ICD-10-PCS; 2018-10-06)
PROC: 4A1HXCZ Monitoring of Products of Conception, Cardiac Rate, External Approach (ICD-10-PCS; 2018-10-06)
PROC: 3E0234Z Introduction of Serum, Toxoid and Vaccine into Muscle, Percutaneous Approach (ICD-10-PCS; 2018-10-08)
PROC: 3E02340 Introduction of Influenza Vaccine into Muscle, Percutaneous Approach (ICD-10-PCS; 2018-10-08)
DX: O11.4 Pre-existing hypertension with pre-eclampsia, complicating childbirth (principal); Z37.0 Single live birth; O99.824 Streptococcus B carrier state complicating childbirth; O24.429 Gestational diabetes mellitus in childbirth, unspecified control; O70.0 First degree perineal laceration during delivery; O71.82 Other specified trauma to perineum and vulva; O99.02 Anemia complicating childbirth; D64.9 Anemia, unspecified; O69.81X0 Labor and delivery complicated by cord around neck, without compression, not applicable or unspecified; Z23 Encounter for immunization; Z3A.39 39 weeks gestation of pregnancy
CPT/HCPCS: 36415; 80053; 80307; 81005; 82570; 83615; 84156; 84550; 85025; 85027; 86592; 86850; 86900; 86901; 90471; 90686; 90715; 94760; G0008; J0360; J1050; J2370; J2540; J2590; J3010; J3490

== ENCOUNTER 2019-06-24 16:28 | Emergency (ER) | payer SELFPAY ==
--- NOTE | 2019-06-24 19:32 | ER Document Report ---
ED Medical Screen (RME) - General Chief Complaint: Abdominal Pain Stated Complaint: BACK/ABDOMINAL PAIN Time Seen by Provider: 06/24/19 19:23 Primary Care Provider: XIMENA MILIAN MD [Primary Care Provider] - Follow up as needed Mode of Arrival: Ambulatory Information source: Patient Notes: HPI: 19 yr old female patient, with the listed pmh, here for llq abdominal pain and low back pain x 7 days. also complains of malodorous dc. No abdominal surgeries. No history of ovarian cysts, fibroids, endometriosis, or renal stones. Normal bowel movements. No UTI symptoms. No URI symptoms. No recent antibiotics or steroids. No history of diabetes or asthma. No vaginal lesions or concerns for STDs. Hasn't taken anything for her symptoms. No excessive NSAID use, Tylenol use, or EtOH. No prior history of gallbladder disease, pancreatitis, diverticulitis, ulcers, GI bleed, GERD, IBS, Crohn's, or UC. no change in color or caliber or stool. no blood thinners. no fall or trauma. no other associated sx. ROS neg to include 10 systems, unless mentioned in the hpi. PE:>>>> PHYSICAL_EXAM: GENERAL_APPEARANCE: well_nourished, alert, cooperative, no_acute_distress, no_obvious_discomfort. pleasant, young black female, smiling, speaking in full sentences, in no sign of pain or resp distress, VITALS: reviewed, see vital signs table. HEAD: no_swelling\tenderness on the head. normocephalic. atraumatic. no olivares signs. no raccoons eyes. EYES: PERRL, EOMI, conjunctiva_clear. NOSE: no_nasal_discharge. MOUTH: (-)decreased moisture. THROAT: no_tonsilar_inflammation, no_airway_obstruction. no_lymphadenopathy NECK: supple, no_neck_tenderness,full rom. full strength. no meningeal signs. BACK: no midline back_tenderness. mild ttp of bilat lower lumbar paralumbar musculature. spasm noted. palpation here reproduces pts pain. no overlying skin changes. CHEST_WALL: no_chest_tenderness. no overlying skin changes LUNGS: no_wheezing, ctab (-)accessory muscle use, good air exchange bilateral. HEART: normal_rate, normal_rhythm, ABDOMEN: normal_BS, soft, mild ttp suprapubicly and llq, (-)guarding, (- )rebound, no distension or peritoneal signs. no cva ttp PELVIC: deferred to additional ED provider as pt was seen in triage EXTREMITIES: strength 5/5 in all_extremities, good pulses in all_extremities, no_swelling\tenderness in the extremities, no_edema. full rom. normal gait. good pulses. brisk cap refill. good hand primary substance abuse counselor. NEURO: motor and sensation intact, SKIN: warm, dry, good_color, no_rash. MENTAL_STATUS: speech_clear, oriented_X_3, normal_affect, responds_appropriately to questions. MDM: I have ordered labs and initial work-up and patient will be transferred to the main ER for further work-up. I have greeted and performed a rapid initial assessment of this patient. A comprehensive ED assessment and evaluation of the patient, analysis of test results and completion of medical decision making process will be conducted by an additional ED providers. Documentation achieved through voice recording which my lead to some occasional accidental typographical errors. Extensive efforts have been made to proof read documentation to make sure these are the least as possible Temp Pulse Resp BP Pulse Ox 06/24/19 16:48 98.0 F 89 16 125/71 100 Category Date Time Status TRANSVAGINAL [U/S NON OB PEL TV W/DOPPLER] [US] Stat Exams 06/24/19 19:31 Ordered CHLAM ABDIAS PCR ENDO INHOUSE [MO] Stat Lab 06/24/19 19:30 Uncollected CHLAM ABDIAS PCR URINE INHOUSE [MO] Stat Lab 06/24/19 21:04 Stop Req HCG QUALITATIVE, URINE [URIN] Stat Lab 06/24/19 19:28 Uncollected URINALYSIS [URIN] Stat Lab 06/24/19 19:28 Uncollected WET MOUNT [MO] Stat Lab 06/24/19 19:28 Uncollected TRAVEL OUTSIDE OF THE [place] IN LAST 30 DAYS: No - Related Data Allergies/Adverse Reactions: No Known Allergies Allergy (Verified 06/24/19 16:28) Past Medical History Pulmonary Medical History: Reports: Hx Asthma Renal/ Medical History: Denies: Hx Peritoneal Dialysis - Immunizations Hx Diphtheria, Pertussis, Tetanus Vaccination: Yes Physical Exam - Vital signs Vitals: Temp Pulse Resp BP Pulse Ox 98.0 F 89 16 125/71 100 06/24/19 16:48 06/24/19 16:48 06/24/19 16:48 06/24/19 16:48 06/24/19 16:48 Course - Vital Signs Vital signs: Temp Pulse Resp BP Pulse Ox 98.0 F 89 16 125/71 100 06/24/19 16:48 06/24/19 16:48 06/24/19 16:48 06/24/19 16:48 06/24/19 16:48 Doctor's Discharge - Discharge Referrals: XIMENA MILIAN MD [Primary Care Provider] - Follow up as needed
[2019-06-24 20:47] LABS: BACTERIA (WET MOUNT) 3+ BACTERIA SEEN; T.VAGINALIS (WET MOUNT) NO TRICHOMONAS SEEN; WBCS (WET MOUNT) FEW WBCS SEEN; YEAST (WET MOUNT) NO YEAST SEEN
[2019-06-24 20:50] LABS: AMORPHOUS SEDIMENT,URINE TRACE /HPF; APPEARANCE,URINE SLIGHTLY-CLOUDY; BILIRUBIN,URINE NEGATIVE (NEGATIVE); COLOR,URINE YELLOW; GLUCOSE, URINE NEGATIVE (NEGATIVE); KETONES,URINE NEGATIVE (NEGATIVE); LEUKOCYTE ESTERASE,URINE TRACE (NEGATIVE); NITRITE,URINE NEGATIVE (NEGATIVE); PROTEIN,URINE NEGATIVE (NEGATIVE); URINE SPECIFIC GRAVITY 1.025; UROBILINOGEN,URINE NEGATIVE mg/dL (<2.0)
--- NOTE | 2019-06-24 21:24 | RADIOLOGY REPORT (SQ) ---
US PELVIS EXAM DATE: 06/24/2019 7:31 PM CDT HISTORY: Left lower quadrant pain. COMPARISON: None. TECHNIQUE: Grayscale, color Doppler, and spectral Doppler ultrasound images of the pelvis were obtained. FINDINGS: The uterus is anteverted and measures 7.8 x 4.3 x 4 point. The cervix measures 2 cm in length. The endometrium is 1 cm in thickness. Both ovaries are normal in size and contain normal follicles, with the right ovary measuring 2.4 x 2.0 x 1.7 cm, and the left ovary measuring 3.4 x 2.6 x 2.2 cm. Normal color Doppler blood flow is seen in both ovaries. There is a 1.6 x 1.8 x 0.9 cm septated cystic lesion in the left ovary. IMPRESSION: 1.8 cm septated left ovarian cyst which may represent a hemorrhagic cyst.
[2019-06-24] MEDS ORDERED: AZITHROMYCIN 250 MG TABLET PO ONE (22:41)
[2019-06-24] MEDS ORDERED: CEFTRIAXONE INJ 250 MG VIAL IM ONE (22:41)
[2019-06-24] MEDS ORDERED: METRONIDAZOLE 500 MG TABLET PO ONE (22:41)
[2019-06-24 22:54] LABS: CHLAM PCR DETECTED (NOT DETECT)
[2019-06-24] MEDS ORDERED: LIDOCAINE 1% INJ-PF (10 MG/ML) 30 ML SDV ONE (23:30)
--- NOTE | 2019-06-24 23:48 | ER Document Report ---
ED General - General Chief Complaint: Abdominal Pain Stated Complaint: BACK/ABDOMINAL PAIN Time Seen by Provider: 06/24/19 19:23 Primary Care Provider: XIMENA MILIAN MD [ACTIVE STAFF] - Follow up as needed Mode of Arrival: Ambulatory Notes: RME note: HPI: 19 yr old female patient, with the listed pmh, here for llq abdominal pain and low back pain x 7 days. also complains of malodorous dc. No abdominal surgeries. No history of ovarian cysts, fibroids, endometriosis, or renal stones. Normal bowel movements. No UTI symptoms. No URI symptoms. No recent antibiotics or steroids. No history of diabetes or asthma. No vaginal lesions or concerns for STDs. Hasn't taken anything for her symptoms. No excessive NSAID use, Tylenol use, or EtOH. No prior history of gallbladder disease, pa ncreatitis, diverticulitis, ulcers, GI bleed, GERD, IBS, Crohn's, or UC. no change in color or caliber or stool. no blood thinners. no fall or trauma. no other associated sx. MY HPI: Patient does admit to presenting to the emergency department for left pelvic pain for the last 7 days but is admitting to vaginal discharge for the last 2 weeks. Patient's denying any dysuria. States since being in the emergency department her pelvic pain has subsided. Patient is denying any nausea, vomiting, fevers, diarrhea. Does admit to malodorous vaginal discharge. Pelvic ultrasound, self swabs for gonorrhea chlamydia, wet mount have already been obtained via E provider. TRAVEL OUTSIDE OF THE [place] IN LAST 30 DAYS: No - Related Data Allergies/Adverse Reactions: No Known Allergies Allergy (Verified 06/24/19 16:28) Past Medical History - General Information source: Patient - Social History Smoking Status: Never Smoker Family History: Reviewed & Not Pertinent Patient has suicidal ideation: No Patient has homicidal ideation: No Pulmonary Medical History: Reports: Hx Asthma Renal/ Medical History: Denies: Hx Peritoneal Dialysis - Immunizations Hx Diphtheria, Pertussis, Tetanus Vaccination: Yes Review of Systems - Review of Systems Constitutional: No symptoms reported EENT: No symptoms reported Cardiovascular: No symptoms reported Respiratory: No symptoms reported Gastrointestinal: See HPI Genitourinary: See HPI Female Genitourinary: See HPI, Last menstrual period - June 04 Musculoskeletal: No symptoms reported Skin: No symptoms reported Hematologic/Lymphatic: No symptoms reported Neurological/Psychological: No symptoms reported Physical Exam - Vital signs Vitals: Temp Pulse Resp BP Pulse Ox 98.0 F 89 16 125/71 100 06/24/19 16:48 06/24/19 16:48 06/24/19 16:48 06/24/19 16:48 06/24/19 16:48 - Notes Notes: GENERAL: Alert, interacts well. No acute distress. HEAD: Normocephalic, atraumatic. EYES: Pupils equal, round, and reactive to light. Extraocular movements intact. ENT: Oral mucosa moist, tongue midline. NECK: Full range of motion. Supple. Trachea midline. LUNGS: Clear to auscultation bilaterally, no wheezes, rales, or rhonchi. No respiratory distress. HEART: Regular rate and rhythm. No murmur ABDOMEN: Soft, non-tender. Non-distended. Bowel sounds present in all 4 quadrants. No pelvic pain noted bilaterally. EXTREMITIES: Moves all 4 extremities spontaneously. No edema, normal radial and dorsalis pedis pulses bilaterally. No cyanosis. BACK: no cervical, thoracic, lumbar midline tenderness. No saddle anesthesia, normal distal neurovascular exam. NEUROLOGICAL: Alert and oriented x3. Normal speech. cranial nerves II through XII grossly intact PSYCH: Normal affect, normal mood. SKIN: Warm, dry, normal turgor. No rashes or lesions noted. Genitalia exam: Excellence Manager Romana PCT. Digital exam performed showing no cervical motion tenderness, no adnexal tenderness noted bilaterally. Malodorous white discharge noted on glove. Course - Re-evaluation Re-evalutation: 06/24/19 23:47 Patient's urine shows no signs of infection, negative hCG. Patient had already done self swabs for gonorrhea, chlamydia, wet mount. Patient's chlamydia did come back positive as well as bacterial vaginosis. Based on patient's initial complaint of pelvic pain I have discussed with her my recommendations to do a digital exam to rule out cervical motion tenderness. Patient is in agreements. Exam performed with no cervical motion tenderness noted. Patient has already been treated for gonorrhea chlamydia in the emergency department. Will send home with Flagyl for bacterial vaginosis. At this time will discharge with return precautions and follow-up recommendations. Verbal discharge instructions given a the bedside and opportunity for questions given. Medication warnings reviewed. Patient is in agreement with this plan and has verbalized understanding of return precautions and the need for primary care follow-up in the next 24-72 hours. This medical record was dictated with voice recognizing software. There may be grammatical, syntax errors that are unintended. - Vital Signs Vital signs: Temp Pulse Resp BP Pulse Ox 98.6 F 71 15 125/71 100 06/24/19 20:50 06/24/19 20:50 06/24/19 20:50 06/24/19 16:48 06/24/19 20:50 - Laboratory Laboratory results interpreted by me: 06/24/19 06/24/19 20:18 20:18 Ur Leukocyte Esterase TRACE H Chlamydia DNA (PCR) DETECTED H Discharge - Discharge Clinical Impression: Chlamydia, Bacterial vaginosis Condition: Stable Disposition: HOME, SELF-CARE Instructions: Chlamydia ([facility]), Vaginosis, Bacterial ([facility]) Additional Instructions: As we discussed you have been seen and treated in the emergency department for bacterial vaginosis and chlamydia. You have already been treated for the chlamydia. Please make sure you are taking antibiotics as prescribed for the bacterial vaginosis. Please make sure you speak with all of your sexual partners as they should also be tested and treated. Please also refrain from sexual activity while on antibiotics. Please follow-up with your primary care provider in the next 24 to 48 hours. Return to the emergency room for any further concerns. Prescriptions: Metronidazole [Flagyl 500 mg Tablet] 500 mg PO BID #14 tablet Forms: Return to Work Referrals: XIMENA MILIAN MD [ACTIVE STAFF] - Follow up as needed
[2019-06-25 00:11] VITALS: BP 145/80
== END 2019-06-25 00:12 | disposition home or self-care (01) ==
LOC: ER 16:28
DX: N76.0 Acute vaginitis (principal); B96.89 Other specified bacterial agents as the cause of diseases classified elsewhere; A74.9 Chlamydial infection, unspecified; R10.2 Pelvic and perineal pain; J45.909 Unspecified asthma, uncomplicated
CPT/HCPCS: 99284; 87210; 81025; 81001; 87491; 87591; 76830; 93976; J0696